=== PATIENT | female | born 1970 | race African-American/Black ===

== ENCOUNTER 2018-01-16 19:52 | Emergency (ER) | payer OTHER ==
[~2018-01-16] VITALS: Ht 167.6 cm; Wt 90.7 kg
[2018-01-16] MEDS ORDERED: BIRTH CONTROL (20:15)
[2018-01-16 20:35] LABS: URINE BILIRUBIN NEGATIVE (Negative); URINE BLOOD NEGATIVE (Negative); URINE CLARITY CLEAR; URINE COLOR YELLOW; URINE GLUCOSE-RANDOM* NEGATIVE (Negative); URINE KETONES NEGATIVE (Negative); URINE LEUKOCYTES-REFLEX NEGATIVE (Negative); URINE NITRITE-REFLEX NEGATIVE (Negative); URINE PROTEIN (DIPSTICK) NEGATIVE (Negative); URINE SPECIFIC GRAVITY <= 1.005 (1.005-1.035); URINE UROBILINOGEN 0.2 E.U./dl (0.2-1.0)
[2018-01-16 20:38] LABS: HEMATOCRIT 29.5 % (37.0-47.0); HEMOGLOBIN 9.5 gm/dL (12.0-15.0); MCH 23.8 pg (26.0-34.0); MCV 74.2 fL (80.0-100.0); RBC 3.98 mil/uL (4.20-5.00); WBC 8.2 thou/uL (4.0-11.0)
[2018-01-16 20:46] LABS: CALCIUM 9.3 mg/dL (8.5-10.1); CREATININE 0.8 mg/dL (0.6-1.0); POTASSIUM 4.2 mmol/L (3.5-5.1)
[2018-01-16] MEDS ORDERED: NORCO 5-325 TA1 EACH PO (21:48)
[2018-01-16] MEDS ORDERED: VALIUM5 MG PO (21:48)
[2018-01-16 22:05] VITALS: BP 152/87
== END 2018-01-16 22:06 | disposition home or self-care (01) ==
LOC: ER 19:52
PROVIDERS: Emergency Medicine
DX: M54.5 Low back pain (principal); R35.0 Frequency of micturition; D64.9 Anemia, unspecified; Z98.890 Other specified postprocedural states; V49.09XA Driver injured in collision with other motor vehicles in nontraffic accident, initial encounter; Y93.89 Activity, other specified; Y92.89 Other specified places as the place of occurrence of the external cause; Y99.8 Other external cause status